=== PATIENT | male | born 1995 | race Caucasian/White ===

== ENCOUNTER 2019-05-04 16:05 | Emergency (ER) | payer OTHER ==
--- NOTE | 2019-05-04 16:46 | ED ---
Upper Extremity Pain - HPI Summary HPI Summary: This pt is a 23 Y/O M presenting to [facility] with a CC of a L shoulder injury that occurred 2 weeks ago and worsened last night. He states that he was snowboarding when the first incident occurred and was seen at urgent care with for an X-Ray which was negative for a Fx. He states that the pain worsened to an 8/10 in severity. He states that he has a decreased ROM and pain with palpation. He also reports that he has a lump on his shoulder. He denies any fevers, headaches, SOB, CP, and N/V. He states that he has no pertinent PMHx of FHx. - History of Current Complaint Chief Complaint: Delia Stated Complaint: LEFT SHOULDER INJURY PER PT Time Seen by Provider: 05/04/19 16:30 Hx Obtained From: Patient Mechanism Of Injury: Fall From A Standing Position Onset/Duration: Started Weeks Ago - 2, Worse Since - 05/03/2019 Timing: Constant, Lasting Weeks - 2 Severity Initially: Moderate Severity Currently: Severe - 8/10 Pain Location: Collar - L, Shoulder - L Aggravating Factor(s): Movement, Other - palpation Alleviating Factor(s): Nothing Associated Signs & Symptoms: Positive: Negative - headaches, Other - POSITIVE: L shoulder pain, lump on L shoulder. Negative: Fever, Chest Pain, SOB, Nausea, Vomiting Related History: Similar Episode/Dx As - Recent L shoulder sprain 2 weeks ago - Allergies/Home Medications Allergies/Adverse Reactions: Allergies Allergy/AdvReac Type Severity Reaction Status Date / Time No Known Allergies Allergy Verified 05/04/19 16:14 PMH/Surg Hx/FS Hx/Imm Hx Previously Healthy: Yes Endocrine/Hematology History: Denies: Hx Diabetes Cardiovascular History: Denies: Hx Rheumatic Fever Respiratory History: Denies: Hx Asthma GI History: Reports: Hx Gastroesophageal Reflux Disease Sensory History: Reports: Hx Contacts or Glasses Opthamlomology History: Reports: Hx Contacts or Glasses - Cancer History Hx Chemotherapy: No Hx Radiation Therapy: No - Surgical History Surgical History: None - Immunization History Immunizations Up to Date: Yes Infectious Disease History: No Infectious Disease History: Denies: Traveled Outside the [place] in Last 30 Days - Family History Known Family History: Positive: Cardiac Disease - States paternal grandmother has a pacemaker , Other - GERD: father - Social History Occupation: Student - [employer] Lives: Dormitory/Roommates Alcohol Use: Weekly Alcohol Amount: weekends Hx Substance Use: Yes Substance Use Type: Reports: Marijuana Hx Tobacco Use: Yes Smoking Status (MU): Light Every Day Tobacco Smoker Review of Systems Negative: Fever Negative: Chest Pain Negative: Shortness Of Breath Negative: Vomiting, Nausea Positive: Other - L shoulder and L collar pain Negative: Headache All Other Systems Reviewed And Are Negative: Yes Physical Exam - Summary Physical Exam Summary: Constitutional: Well-developed, Well-nourished, Alert. (-) Distressed Skin: Warm, Dry HENT: Normocephalic; Atraumatic Eyes: Conjunctiva normal Neck: Musculoskeletal ROM normal neck. (-) JVD, (-) Stridor, (-) Tracheal deviation Cardio: Rhythm regular, rate normal, Heart sounds normal; Intact distal pulses; The pedal pulses are 2+ and symmetric. Radial pulses are 2+ and symmetric. (-) Murmur Pulmonary/Chest wall: Effort normal. (-) Respiratory distress, (-) Wheezes, (-) Rales Abd: Soft, (-) tenderness, (-) Distension, (-) Guarding, (-) Rebound Musculoskeletal: (-) Edema, clavicular tenderness Lymph: (-) Cervical adenopathy Neuro: Alert, Oriented x3 Psych: Mood and affect Normal Triage Information Reviewed: Yes Vital Signs On Initial Exam: Initial Vitals Temp Pulse Resp BP Pulse Ox 98.3 F 81 19 141/100 96 05/04/19 16:08 05/04/19 16:08 05/04/19 16:08 05/04/19 16:08 05/04/19 16:08 Vital Signs Reviewed: Yes Procedures - Sedation Patient Received Moderate/Deep Sedation with Procedure: No Diagnostics - Vital Signs Vital Signs Temp Pulse Resp BP Pulse Ox 05/04/19 16:08 98.3 F 81 19 141/100 96 - Laboratory Lab Statement: Any lab studies that have been ordered have been reviewed, and results considered in the medical decision making process. - Radiology L shoulder X-Ray Radiology Interpretation Completed By: ED Physician Summary of Radiographic Findings: L clavicle fracture. Pending offical review. Course/Dx - Course Course Of Treatment: This pt is a 23 Y/O M presenting to [facility] with a CC of a L shoulder injury that occurred 2 weeks ago and worsened last night. He states that he was snowboarding when the first incident occurred and was seen at urgent care with for an X-Ray which was negative for a Fx. He states that the pain worsened to an 8/10 in severity. He states that he has a decreased ROM and pain with palpation. His PE found that he has tenderness to his L clavicular joint. His Shoulder X-Ray shows a L clavicle fracture. He will be discharged home in a sling and given an orthopedic follow up for monday05/06/2019. - Diagnoses Provider Diagnoses: Closed left clavicular fracture Discharge ED - Sign-Out/Discharge Documenting (check all that apply): Patient Departure - discharge - Discharge Plan Condition: Stable Disposition: HOME Patient Education Materials: Clavicle Fracture (ED), How to Use a Sling (ED) Referrals: [facility] - Rusty REEVES [Primary Care Provider] - 05/06/19 Imtiaz Yu MD [Medical Doctor] - 05/06/19 Additional Instructions: PLEASE FOLLOW UP WITH DR. YU, ORTHOPEDIC, ON Monday05/06/2019. RETURN TO THE EMERGENCY DEPARTMENT FOR ANY NEW OR WORSENING SYMPTOMS. - Billing Disposition and Condition Condition: STABLE Disposition: Home - Attestation Statements Document Initiated by Scribe: Yes Documenting Scribe: Sumit Encinas Provider For Whom Anupama is Documenting (Include Credential): Kalin Earl DO [employer] Attestation: ISumit, scribed for Kalin Earl DO on 05/04/19 at 1733. Scribe Documentation Reviewed: Yes Provider Attestation: The documentation as recorded by the Sumit potts accurately reflects the service I personally performed and the decisions made by , Kalin Earl DO Status of Scribfinesse Document: Viewed
[2019-05-04] MEDS ORDERED: Acetaminophen TAB* 325 MG PO ONE (17:02)
[2019-05-04 17:43] VITALS: BP 134/61
== END 2019-05-04 17:42 | disposition home or self-care (01) ==
LOC: ED 16:05
DX: S42.022A Displaced fracture of shaft of left clavicle, initial encounter for closed fracture (principal); V00.311A Fall from snowboard, initial encounter; Y93.23 Activity, snow (alpine) (downhill) skiing, snowboarding, sledding, tobogganing and snow tubing; Y92.9 Unspecified place or not applicable; F17.200 Nicotine dependence, unspecified, uncomplicated
CPT/HCPCS: 99282; A9270-GY